=== PATIENT | male | born 1985 | race Caucasian/White ===

== ENCOUNTER 2023-12-14 00:31 | Emergency (ER) | payer OTHER ==
[2023-12-14 00:41] VITALS: BP 124/76; PULSE 100; RESP 16; TEMP 98.6; BMI 29.0
[2023-12-14] MEDS ORDERED: KETOROLAC TROMETHAMINE 60 MG/2 ML VIAL ONE (00:47)
[2023-12-14] MEDS ORDERED: CYCLOBENZAPRINE HCL 5 MG TABLET ONE (00:47)
[2023-12-14] MEDS: CYCLOBENZAPRINE HCL 10 MG TABLET (FP) PO ONE (00:50)
[2023-12-14] MEDS: KETOROLAC TROMETHAMINE 60 MG/2 ML VIAL IM ONE (00:50)
== END 2023-12-14 00:53 | disposition home or self-care (01) ==
LOC: FER 00:31
PROC: 3E0133Z Introduction of Anti-inflammatory into Subcutaneous Tissue, Percutaneous Approach (ICD-10-PCS; principal; 2023-12-14)
DX: M54.41 Lumbago with sciatica, right side (principal); R25.2 Cramp and spasm; X50.0XXA Overexertion from strenuous movement or load, initial encounter; Y99.0 Civilian activity done for income or pay
CPT/HCPCS: 99284-25